=== PATIENT | female | born 1970 | race Caucasian/White ===

== ENCOUNTER 2017-09-14 16:08 | Emergency (ER) | payer OTHER ==
[2017-09-14 16:27] VITALS: BP 109/50
--- NOTE | 2017-09-14 17:02 | RAD ---
INDICATION: Left foot injury. TECHNIQUE: 3 views of the left foot were obtained. FINDINGS: There is lateral soft tissue swelling. There is an oblique slightly comminuted fracture of the distal diaphysis and metaphysis of the fifth metatarsal. The fracture fragments are impacted. No other fractures are seen. Joint spaces appear maintained. IMPRESSION: OBLIQUE, COMMINUTED IMPACTED FRACTURE OF THE FIFTH METATARSAL.
--- NOTE | 2017-09-14 17:24 | ED ---
Lower Extremity - HPI Summary HPI Summary: 47 YO F C/O LEFT LATERAL FOOT PAIN AFTER TRIP AND FALL DOWN SEVERAL STEPS JPTA. PAIN WITH ATTEMPTED WEIGHT BEARING. DENIES OTHER INJURIES. - History of Current Complaint Chief Complaint: UCLowerExtremity Stated Complaint: FOOT INJURY Time Seen by Provider: 09/14/17 17:08 Hx Last Menstrual Period: 09/09/17 - Allergies/Home Medications Allergies/Adverse Reactions: Allergies Allergy/AdvReac Type Severity Reaction Status Date / Time No Known Allergies Allergy Verified 09/14/17 16:20 Home Medications: Home Medications Levothyroxine TAB* [Synthroid 75 MCG TAB*] 1 tab PO DAILY 09/14/17 [History Confirmed 09/14/17] PMH/Surg Hx/FS Hx/Imm Hx Previously Healthy: Yes Endocrine/Hematology History: Reports: Hx Thyroid Disease - Cancer History Hx Chemotherapy: No Hx Radiation Therapy: No Infectious Disease History: No Infectious Disease History: Denies: History Other Infectious Disease, Traveled Outside the [place] in Last 30 Days - Social History Alcohol Use: Daily Substance Use Type: Reports: None Smoking Status (MU): Never Smoked Tobacco Review of Systems Constitutional: Negative Eyes: Negative ENT: Negative Cardiovascular: Negative Respiratory: Negative Gastrointestinal: Negative Positive: no symptoms reported Positive: Other - PAIN/SWELLING LATERAL LEFT FOOT Positive: Other - ECCYMOSIS LATERAL LEFT FOOT Neurological: Negative Psychological: Normal All Other Systems Reviewed And Are Negative: Yes Physical Exam Triage Information Reviewed: Yes Vital Signs On Initial Exam: Initial Vitals Temp Pulse Resp BP Pulse Ox 98.7 F 58 15 109/50 99 09/14/17 16:21 09/14/17 16:21 09/14/17 16:21 09/14/17 16:21 09/14/17 16:21 Vital Signs Reviewed: Yes Appearance: Positive: Well-Appearing, No Pain Distress Skin: Positive: Warm, Skin Color Reflects Adequate Perfusion Eyes: Positive: Normal, EOMI, BRAEDEN Neck: Positive: Supple Musculoskeletal: Positive: Other - SWELLING/ECCYMOSIS/TENDER TO PALPATION LATERAL LEFT FOOT, MID 5TH METATARSAL. NO SKIN BREAK. ANKLE NORMAL EXAM. NL CAP REFILL. Neurological: Positive: Normal Psychiatric: Positive: Normal AVPU Assessment: Alert Diagnostics - Vital Signs Vital Signs Temp Pulse Resp BP Pulse Ox 09/14/17 16:21 98.7 F 58 15 109/50 99 - Laboratory Lab Statement: Any lab studies that have been ordered have been reviewed, and results considered in the medical decision making process. Lower Extremity Course/Dx - Course Course Of Treatment: POST OP SHOE AND CRUTCHES. F/U ORTHOPEDICS. - Diagnoses Provider Diagnoses: Nondisplaced fracture of fifth left metatarsal bone Discharge - Discharge Plan Condition: Stable Disposition: HOME Patient Education Materials: Crutch Instructions (ED), Foot Fracture in Adults (ED) Referrals: [facility] [Outside] Kaleigh Chambers MD [Primary Care Provider] - Elizabeth Bueno MD [Medical Doctor] - Additional Instructions: FOLLOW UP WITH ORTHOPEDICS; CALL TOMORROW IN THE MORNING TO ARRANGE AN APPOINTMENT. GET RECHECKED FOR ANY WORSENING OF YOUR CONDITION OR QUESTIONS OR CONCERNS.
== END 2017-09-14 17:37 | disposition home or self-care (01) ==
LOC: UCEAST 16:08
DX: S92.355A Nondisplaced fracture of fifth metatarsal bone, left foot, initial encounter for closed fracture (principal); E07.9 Disorder of thyroid, unspecified; Z79.899 Other long term (current) drug therapy; W10.9XXA Fall (on) (from) unspecified stairs and steps, initial encounter; Y92.9 Unspecified place or not applicable
CPT/HCPCS: 99212; G0463

== ENCOUNTER 2018-08-16 08:19 | Emergency (ER) | payer OTHER ==
--- OUTSIDE RECORDS SUMMARY | 2018-08-16 08:24 | XMS REPORT | Continuity of Care Document ---
:1970 External Reference #:[id number] Author Name Dana Mao O.D. Address [address] [place] [address] Care Team Providers Name Role Phone Guillermina Jones M.D. Primary Care Physician Unavailable Payers Type Date Identification Numbers Payment Provider Subscriber Policy Number: [id number] [employer] Ppo/Pos/Epo/Nap Shai Gonzalez Group Number: [id number] [address] PayID: [id number] [place] [address] Advance Directives Description No Information Available Problems Date Description Provider Status Onset: Hypothyroidism Active Onset: 08/02/2018 Tear film insufficiency Dana Mao O.D. Active Onset: 12/30/2015 Presbyopia Amy Mcgarry O.D. Active Onset: 12/30/2015 Myopia Amy Mcgarry O.D. 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 ETOH Use Occasionally consumes alcohol Tobacco Use Start: Unknown Patient has never smoked Recreational Drug Use Denies Drug Use Smoking Status Reviewed: 08/02/18 Patient has never smoked Allergies, Adverse Reactions, Alerts Description No Known Drug Allergies Medications Medication Date Status Form Strength Qnty SIG Indications Ordering Provider Levothyroxine Active Tablets 75mcg 1 daily Unknown Sodium 00 Multi Vitamin Active Tablets Unknown Daily 00 Immunizations Description No Information Available Vital Signs Description No Information Available Results Description No Information Available Procedures Date Code Description Status 01/27/2017 47192 Determination Of Refractive State Completed 01/27/2017 37907 Est Patient Comprehensive Exam Completed 12/30/2015 61990 Determination Of Refractive State Completed 12/30/2015 59557 New Patient Comprehensive Exam Completed Encounters Description No Information Available Plan of Treatment 08/02/2018 - Dana Mao O.D.H04.123 Dry eye syndrome of bilateral lacrimal glandsComments:Both of your eyes appear to be dry. Use artificial tears as directed. You can use the tears more often if you are reading a book or are on the computer, as we tend to blink less, making our eyes dry out more.[facility] offers a few items in our optical department to help alleviate dry eye symptoms.H52.13 Myopia, bilateralComments:Smoking can increase the risk of developing or worsening any eye related disease, as well as affect your overall health. If you are a smoker, we strongly recommend that you quit.If you are not a smoker, we strongly recommend that you do not start. You have Myopia, or near sightedness. I have given you a prescription for glasses.Follow up:1 Year Follow Up You can expect to have your eyes dilated at your next visit. If Dr. Mao orders any additional testing, it may require extra time. We recommend that you bring sunglasses, as dilation drops often make you light sensitive until they wear off. We always recommend you bring someone to drive you home if you are uncomfortable driving with your eyes dilated. If you have any questions before your next visit, feel free to call our office at .H52.4 PresbyopiaComments:You have presbyopia. This is when the lens in your eye loses the ability to change focus, and happens as we age. A pair of reading glasses will help you see up close.
--- OUTSIDE RECORDS SUMMARY | 2018-08-16 08:24 | XMS REPORT | Continuity of Care Document ---
:1970 External Reference #:[id number] Author Name Kat Seth Care Team Providers Name Role Phone Kaleigh Chambers MD Primary Care Physician Unavailable Payers Type Date Identification Numbers Payment Provider Subscriber Policy Number: [id number] [employer] Shai Gonzalez Group Number: [id number] [address] PayID: [id number] [place] [address] Advance Directives Description No Information Available Problems Date Description Provider Status Onset: 08/01/2015 Hypothyroidism Guillermina Jones M.D. Active Onset: 08/01/2015 Rosacea Guillermina Jones M.D. 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 Tobacco Use Start: Unknown Never Smoked Cigarettes Smoking Status Reviewed: Never Smoked 08/07/18 Cigarettes ETOH Use Consumes 1 glass of wine per day ETOH Use Consumes 7 glasses of wine per week Tobacco Use Start: Unknown Patient has never smoked Recreational Drug Use Denies Drug Use Exercise Type/Frequency Exercises regularly treadmill 6 miles per wk now these days Exercise Type/Frequency aerobic 3 times a week Allergies, Adverse Reactions, Alerts Description No Known Drug Allergies Medications Medication Date Status Form Strength Qnty SIG Indications Ordering Provider Knee Scooter 09/15/ Active 1units Knee Lyle 2016 scooter to F use as Cristian, needed for MD left lower extremity Vitamin D 08/03/ Active Capsules 1 per day Guillermina (Cholecalcifero 2016 mandy Jones) M.D. Metronidazole 07/29/ Active Gel 0.75% 45gm apply Kaleigh 2015 daily to Chambers, area daily M.D. Levothyroxine 07/29/ Active Tablets 75mcg 90tabs Take 1 Kaleigh Sodium 2015 Tablet By Chambers, Mouth M.D. Every Day Multi Vitamin / Active Tablets 1 daily Unknown Daily 0000 Vitamin B12 TR / Active Tablets ER 1 by mouth Unknown 0000 every day Vitamin D3 08/01/ Hx Capsules 36357Avlm 8caps Guillermina 2014 - Robert, 08/03/ M.D. 2016 Levothyroxine 07/29/ Hx Tablets 75mcg 90tabs Take 1 Kaleigh Sodium 2014 - Tablet By Trish, 08/07/ Mouth M.D. 2018 Every Day Vitamin D High / Hx Capsules 1000Unit not sure Unknown Potency 0000 - dose, 1 by 08/03/ mouth 2016 every day Immunizations CPT Code Status Date Vaccine Reaction Lot # [id number] Given 05/29/2018 Influenza Virus Vaccine, Quadrivalent, Split, Preservative Free 50276 Given 08/03/2017 Influenza Virus Vaccine, given IM in L [id number] Quadrivalent, Split, deltoid,efe.well,site Preservative Free unremarkable,bandaid applied 88653 Given 07/29/2015 Tdap - [id number] Tetanus/Diptheria/Acellular Pertussis 63017 Given 07/29/2015 Influenza Virus Vaccine, [id number] Quadrivalent, Split, Preservative Free [id number] Refused 06/29/2016 Influenza Virus Vaccine, Quadrivalent, Split, Preservative Free Vital Signs Date Vital Result Comment 08/07/2018 8:58am Height 68 inches 5'8" Weight 151.00 lb Heart Rate 59 /min BP Systolic Sitting 110 mmHg BP Diastolic Sitting 68 mmHg O2 % BldC Oximetry 98 % BMI (Body Mass Index) 23.0 kg/m2 01/05/2018 2:11pm Height 68 inches 5'8" Weight 145.00 lb Heart Rate 66 /min Respiratory Rate 15 /min Pain Level 0 BMI (Body Mass Index) 22.0 kg/m2 11/10/2017 8:59am Height 68 inches 5'8" Weight 151.00 lb per pt Heart Rate 58 /min reg Respiratory Rate 16 /min Pain Level 0 BMI (Body Mass Index) 23.0 kg/m2 10/11/2017 10:56am Height 68 inches 5'8" Weight 151.00 lb Heart Rate 118 /min Respiratory Rate 18 /min Body Temperature 99.0 F Pain Level 3 BMI (Body Mass Index) 23.0 kg/m2 09/15/2017 11:35am Height 68 inches 5'8" Heart Rate 57 /min BP Systolic 118 mmHg BP Diastolic 70 mmHg Respiratory Rate 18 /min Body Temperature 96.9 F Pain Level 5 08/03/2017 10:15am Height 68 inches 5'8" Weight 151.00 lb Heart Rate 85 /min BP Systolic Sitting 102 mmHg BP Diastolic Sitting 64 mmHg Body Temperature 96.4 F O2 % BldC Oximetry 97 % BMI (Body Mass Index) 23.0 kg/m2 10/20/2016 8:19am Height 68 inches 5'8" Weight 147.50 lb with boots Heart Rate 66 /min BP Systolic Sitting 118 mmHg Lue reg cuff BP Diastolic Sitting 62 mmHg Lue reg cuff BP Systolic Standing 110 mmHg Lue reg cuff BP Diastolic Standing 60 mmHg Lue reg cuff Respiratory Rate 6 /min BMI (Body Mass Index) 22.4 kg/m2 Ejection Fraction 55-60% echo 09/14/16 09/08/2016 12:59pm Height 68 inches 5'8" Weight 144.50 lb no shoes Heart Rate 56 /min BP Systolic 114 mmHg Rue reg cuff BP Diastolic 60 mmHg Rue reg cuff BP Systolic Sitting 112 mmHg Lue reg cuff BP Diastolic Sitting 62 mmHg Lue reg cuff BP Systolic Standing 108 mmHg Lue reg cuff BP Diastolic Standing 60 mmHg Lue reg cuff Respiratory Rate 14 /min BMI (Body Mass Index) 22.0 kg/m2 08/02/2016 1:09pm Height 68 inches 5'8" Weight 145.00 lb Heart Rate 54 /min BP Systolic Sitting 100 mmHg BP Diastolic Sitting 64 mmHg Body Temperature 98.4 F BMI (Body Mass Index) 22.0 kg/m2 07/29/2015 9:57am Height 68 inches 5'8" Weight 144.00 lb Heart Rate 65 /min BP Systolic Sitting 108 mmHg BP Diastolic Sitting 74 mmHg Body Temperature 98.3 F O2 % BldC Oximetry 98 % BMI (Body Mass Index) 21.9 kg/m2 Results Test Date Facility Test Result H/L Range Note Laboratory test 10/27/2017 [facility] Cytology SEE RESULT [address] [place] [address] [phone] Lipid Profile 07/27/2017 [facility] Triglycerides 91 mg/dL N 2 (Trig/Chol/HDL) [address] [place] [address] [phone] Cholesterol 159 mg/dL N 3 HDL Cholesterol 59.1 mg/dL N 4 LDL Cholesterol 82 mg/dL N 5 Laboratory test 07/27/2017 [facility] TSH (Thyroid 2.43 mcIU/mL N 0.34-5.[address] [place] [address] [phone] Glucose 86 mg/dL N 70-100 7 Laboratory test 07/27/2016 [facility] Glucose 82 mg/dL N 70- [address] [place] [address] [phone] Lipid Profile 07/27/2016 [facility] Triglycerides 57 mg/dL N 9 (Trig/Chol/HDL) [address] [place] [address] [phone] Cholesterol 144 mg/dL N 10 HDL Cholesterol 60.8 mg/dL N 11 LDL Cholesterol 72 mg/dL N 12 Laboratory test 07/27/2016 [facility] TSH (Thyroid 3.43 mcIU/mL N 0.34-5.[address] [place] [address] [phone] Free T4 (Free Thyroxine) 1.10 ng/dL N 0.61-1.12 14 Laboratory test 09/30/2015 [facility] Vitamin D 66.2 ng/mL High 30-[address]) [place] [address] [phone] Laboratory test 07/29/2015 [facility] TSH (Thyroid 3.15 N 0.34 -5.[address]) ?IU/[place] [address] [phone] Free T4 (Free Thyroxine) 1.00 ng/mL N 0.61-1.12 Vitamin D Total 25(Oh) 19.0 ng/mL Low 30-50 Laboratory test 07/21/2015 [facility] Glucose 83 mg/dL N 70- 100 15 finding [address] [place] [address] [phone] Lipid Profile 07/21/2015 [facility] Triglycerides 106 mg/dL N 16 (Trig/Chol/HDL) [address] [place] [address] [phone] Cholesterol 164 mg/dL N 17 HDL Cholesterol 55.3 mg/dL N 18 LDL Cholesterol 88 mg/dL N 19 1 SEE RESULT BELOW Name: TADYUDITH : [address]: Elizabeth Miller MD Acct: [id number] Unit: [id number] AGE: 47 Location: [facility] Re10/27/17 SEX: F Status: REG REF SPEC: [id number] BINH: 10/27/17-[address] [facility] [address]: Elizabeth Miller MD REQ: [id number] RECD: 10/27/17160 STATUS: GALLO DYSON DR: Kaleigh Chambers MD _ ORDERED: TP IMAGE ANAL, HPV/Thin Prep COMMENTS: [id number] Negative for Intraepithelial lesion or Malignancy A. Ectocervical/Endocervical Specimen Adequacy: Satisfactory of evaluation Transformation zone component identified Patient Information: HPV: High risk HPV RNA testing regardless of pap results. Actual Specimen Date: 10/27/17 Last Menstrual Date: 10/11/17 Date of Last Specimen: 09/07/16 Date Time Test Result Flag (u) Normal Range 10/27/17 1006 @ HPV RNA Negative Negative @ @ The high-risk HPV types detected by the assay include: 16, @ 18, 31, 33, 35, 39, 45, 51, 52, 56, 58, 59, 66, and 68. Signed (signature on file) ABEBA Nicole (ASCP) 10/28 3377 This Pap test was evaluated with the assistance of the ThinPrep Test Imaging System. Due to cytologic findings at the measurement technician microscope, comprehensive manual rescreening by a Fish Header may be required. The Pap Smear is a screening test designed to aid in the detection of premalignant and malignant conditions of the uterine cervix. It is not a diagnostic procedure and should not be used as the sole means of detecting cervical cancer. Both false- positive and false- negative reports do occur. Depending on your risk status, a Pap smear should be obtained and evaluated every 1-3 years. END OF REPORT * ML=Testing performed at Main Lab DEPARTMENT OF PATHOLOGY, [address] [place] [address] Betito Melo M.D. Director [facility] # [id number] 2 Desirable: <150 Borderline High: 150-199 High: 200-499 Very High: >500 3 Desirable: <200 Borderline High: 200-239 High: >239 4 Low: <40 Desirable: 40-60 High: >60 5 Desirable: <100 Near Optimal: 100-129 Borderline High: 130-159 High: 160-189 Very High: >189 6 FASTING 12 HOUR 7 FASTING 12 HOUR 8 FASTING 12 HOUR 9 Desirable <150 Borderline high 150-199 High 200-499 Very High >500 10 Desirable <200 Borderline high 200-239 High >239 11 Low <40 Desirable: 40-60 High: >60 12 Desirable: <100 mg/dL Near Optimal: 100-129 mg/dL Borderline High: 130-159 mg/dL High: 160-189 mg/dL Very High: >189 mg/dL 13 FASTING 12 HOUR 14 FASTING 12 HOUR 15 FASTING 10 HOUR 16 Desirable <150 Borderline high 150-199 High 200-499 Very High >500 17 Desirable <200 Borderline high 200-239 High >239 18 Low <40 Desirable: 40-60 High: >60 19 Desirable: <100 mg/dL Near Optimal: 100-129 mg/dL Borderline High: 130-159 mg/dL High: 160-189 mg/dL Very High: >189 mg/dL Procedures Date Code Description Status 11/02/2017 [id number] Mammogram Completed 09/15/2017 66275 Closed TX Metacarpal FX Single W/O Manipulation, Ea Completed Bone 08/03/2017 39752 Admin & Interp Of Health Risk Assessment w/ Patient Completed 10/07/2016 [id number] Mammogram Completed 10/02/2016 09116 Mobile Cardiovascular Telemetry Over 24 HR Up To 30 Completed Days 09/29/2016 54560 ECHO Stress Test Incl Perf Contiuous ekg Monitoring Completed W/Phys Superv 09/14/2016 29983 ECHO Transthoracic, Real-Time 2D With Doppler And Completed Color Flow 09/08/2016 60360 EKG Tracing & Interpretation Completed 08/02/2016 46009 EKG Tracing & Interpretation Completed 08/12/2015 [id number] Mammogram Completed 11/17/2014 [id number] Diabetic Retinal Eye Exam Completed 11/17/2014 [id number] Mammogram Completed 05/21/2014 [id number] Mammogram Completed 09/19/2010 [id number] Colonoscopy Completed Encounters Type Date Location Provider Dx Diagnosis Office Visit 01/05/2018 [facility] S92.355D Nondisp fx of 5th 2:00p [facility] Foster MD metatarsal bone, l ft, 7thD Office Visit 08/03/2017 [facility] Kaleigh Chambers, Z00.00 Encntr for 10:30a Jefry Ravi M.D. general adult [place] medical exam w/o abnormal findings Z23 Encounter for immunization Office Visit 10/20/2016 8:45a [facility] R00.2 Palpitations Yamila Solitario M.D., FACC, FASNC Z82.49 Family hx of ischem heart dis and oth dis of the circ sys Office Visit 09/08/2016 1:30p [facility] R00.2 Palpitations Yamila Solitario M.D., FACC, FASNC Z82.49 Family hx of ischem heart dis and oth dis of the circ sys R06.00 Dyspnea, unspecified Office Visit 08/02/2016 1:00p [facility] Kaleigh Z00.01 Encounter for Jefry Chambers M.D. general adult [place] medical exam w abnormal findings R00.2 Palpitations E03.9 Hypothyroidism, unspecified Office Visit 07/29/2015 10:00a [facility] Guillermina Jones Z00.01 Encounter for Jefry Ravi M.D. general adult [place] medical exam w abnormal findings Z12.31 Encntr screen mammogram for malignant neoplasm of breast E03.9 Hypothyroidism, unspecified L71.9 Rosacea, unspecified N39.41 Urge incontinence Z23 Encounter for immunization Plan of Treatment Future Appointment(s):08/09/2019 9:10 am - Kaleigh Chambers M.D. at [facility] Medicine - Tqrmsxgpc02/19/2018 - Kaleigh Chambers M.D.Z00.00 Encounter for general adult medical examination without abnoComments:Reviewed online questionnaire which reveals no diabetes, cholesterol profile is good, BMI is normal , I am glad you have an active lifestyle and no issues with anxiety/ depression and stress is well handled !VACCINES:Flu shot every year in the fall. Your last tetanus/whooping cough bosste rwas in 2014 and it is good for 10 years (F)Mammogram: every 1-2 years between age 50 -75(F)Pelvic Exam/Pap smear:every 3-5 years up to age 65 if low risk Screening for glaucoma: every 1- 2 years unless otherwise instructed by your eye doctor Cardiovascular Disease: Cholesterol Screening test every 5 yearsEXERCISE:Leg exercise like walking is essential to maintaining independence!We would like to have a copy on file when you get your Health Care Proxy and Advance Directives completed.
[2018-08-16 08:30] VITALS: BP 121/43
--- NOTE | 2018-08-16 09:00 | UC ---
Skin Complaint HPI - HPI Summary HPI Summary: SUSTAINED A CUT UNDER RIGHT INDEX FINGER NAIL WHILE REACHING INTO HER PURSE 2 DAYS AGO. SINCE THEN IT HAS BECOME SWOLLEN, RED AND TENDER. - History of Current Complaint Chief Complaint: UCUpperExtremity Time Seen by Provider: 08/16/18 08:36 Stated Complaint: FINGER INJURY Hx Obtained From: Patient Hx Last Menstrual Period: 2 weeks Onset/Duration: Gradual Onset, Lasting Days, Still Present Timing: Constant Onset Severity: Mild Current Severity: Moderate Pain Intensity: 5 Pain Scale Used: 0-10 Numeric Location: Hand (Right) - INDEX FINGER Character: Swelling, Pain, Redness Aggravating Factor(s): Touch Alleviating Factor(s): Nothing Associated Signs & Symptoms: Positive: Tenderness - Allergy/Home Medications Allergies/Adverse Reactions: Allergies Allergy/AdvReac Type Severity Reaction Status Date / Time No Known Allergies Allergy Verified 09/14/17 16:20 Review of Systems All Other Systems Reviewed And Are Negative: Yes Constitutional: Positive: Negative Skin: Positive: Other - ERYTHEMA RIGHT DISTAL INDEX FINGER Respiratory: Positive: Negative Cardiovascular: Positive: Negative Gastrointestinal: Positive: Negative Musculoskeletal: Positive: Edema PMH/Surg Hx/FS Hx/Imm Hx Endocrine History: Hypothyroidism - Surgical History Surgical History: None - Family History Known Family History: Positive: Non-Contributory - Social History Alcohol Use: Daily Substance Use Type: None Smoking Status (MU): Never Smoked Tobacco Physical Exam Triage Information Reviewed: Yes Appearance: Well-Appearing, No Pain Distress, Well-Nourished Vital Signs: Initial Vital Signs Temp 98.3 F 08/16/18 08:25 Pulse 78 08/16/18 08:25 Resp 16 08/16/18 08:25 BP 121/43 08/16/18 08:25 Pulse Ox 99 08/16/18 08:25 Vital Signs Reviewed: Yes Eyes: Positive: Conjunctiva Clear ENT: Positive: Hearing grossly normal Neck: Positive: Supple Respiratory: Positive: No respiratory distress, No accessory muscle use Cardiovascular: Positive: Pulses Normal Abdomen Description: Positive: Soft Musculoskeletal: Positive: ROM Intact, Edema @ - RIGHT DISTAL INDEX FINGER Neurological: Positive: Alert Psychological: Positive: Age Appropriate Behavior Skin: Positive: Other - ERYTHEMA RIGHT DISTAL INDEX FINGER Course/Dx - Diagnoses Provider Diagnosis: Cellulitis of right index finger Discharge - Sign-Out/Discharge Documenting (check all that apply): Patient Departure All imaging exams completed and their final reports reviewed: No Studies - Discharge Plan Condition: Stable Disposition: HOME Prescriptions: Cephalexin CAP* [Keflex 500 CAP*] 1,000 mg PO BID #28 cap Patient Education Materials: Cellulitis (ED) Referrals: Kaleigh Chambers MD [Primary Care Provider] - If Needed Additional Instructions: TAKE THE ANTIBIOTIC TWICE DAILY FOR THE FULL COURSE. IBUPROFEN NEEDED FOR DISCOMFORT. YOU HAD A TETANUS BOOSTER 07/29/15. SEEK FOLLOW-UP IF YOU DEVELOP SPREADING REDNESS OF THE SKIN, PURULENT DRAINAGE, FEVER, INCREASED PAIN OR ANY OTHER CONCERNING SYMPTOMS. - Billing Disposition and Condition Condition: STABLE Disposition: Home
== END 2018-08-16 09:00 | disposition home or self-care (01) ==
LOC: UCEAST 08:19
DX: L03.011 Cellulitis of right finger (principal)
CPT/HCPCS: 99212; G0463

== ENCOUNTER 2018-11-03 08:59 | Emergency (ER) | payer OTHER ==
[2018-11-03 09:37] VITALS: BP 103/57
--- NOTE | 2018-11-03 10:52 | UC ---
Throat Pain/Nasal Keny HPI - HPI Summary HPI Summary: 48 y/o female presents to the urgent care c/o sore throat cild has flu and strept - History of Current Complaint Chief Complaint: UCGeneralIllness Stated Complaint: POSS STREP/FLU Time Seen by Provider: 11/03/18 10:26 Hx Obtained From: Patient Hx Last Menstrual Period: 10/20/18 Pain Intensity: 7 - Allergies/Home Medications Allergies/Adverse Reactions: Allergies Allergy/AdvReac Type Severity Reaction Status Date / Time No Known Allergies Allergy Verified 11/03/18 09:37 PMH/Surg Hx/FS Hx/Imm Hx - Surgical History Surgical History: None - Family History Known Family History: Positive: Non-Contributory - Social History Alcohol Use: Daily Substance Use Type: None Smoking Status (MU): Never Smoked Tobacco Physical Exam - Summary Physical Exam Summary: VITAL SIGNS: Reviewed. GENERAL: Patient is a well developed and nourished who is sitting comfortable in the examining table. Patient is not in any acute respiratory distress. HEAD AND FACE: No signs of trauma. No ecchymosis, hematomas or skull depressions. No sinus tenderness. EYES: PERRLA, EOMI x 2, No injected conjunctiva, no nystagmus. No photophobia. EARS: Hearing grossly intact. Ear canals and tympanic membranes are within normal limits. Nose: edematous and erythematous nasal mucosa w/ clear nasal discharge. MOUTH: Positive no erythema, no tonsillar enlargement. Uvula in midline. NECK: Supple, trachea is midline, Positive anterior cervical lymphadenopathy, no JVD, no carotid bruit, no c-spine tenderness, neck with full ROM. No meningeal signs, no Kernig's or brudzinskis signs. CHEST: Symmetric, no tenderness at palpation LUNGS: Clear to auscultation bilaterally. No wheezing or crackles. CVS: Regular rate and rhythm, S1 and S2 present, no murmurs or gallops appreciated. ABDOMEN: Soft, non-tender. No signs of distention. No rebound no guarding, and no masses palpated. Bowel sounds are normal. EXTREMITIES: FROM in all major joints, no edema, no cyanosis or clubbing. NEURO: Alert and oriented x 3. No acute neurological deficits. Speech is normal and follows commands. SKIN: Dry and warm Triage Information Reviewed: Yes Vital Signs: Initial Vital Signs Temp 98 F 11/03/18 09:35 Pulse 68 11/03/18 09:35 Resp 17 11/03/18 09:35 BP 103/57 11/03/18 09:35 Pulse Ox 100 11/03/18 09:35 Throat Pain/Nasal Course/Dx - Differential Dx/Diagnosis Differential Diagnosis/HQI/PQRI: Influenza, Laryngitis, Pharyngitis, Tonsillitis , URI Provider Diagnosis: Influenza A Discharge - Sign-Out/Discharge Documenting (check all that apply): Patient Departure - d/c home All imaging exams completed and their final reports reviewed: No Studies - Discharge Plan Condition: Stable Disposition: HOME Prescriptions: Oseltamivir CAP* [Tamiflu CAP*] 75 mg PO BID #10 cap Patient Education Materials: Influenza (ED) Referrals: Kaleigh Chambers MD [Primary Care Provider] - 3 Days Additional Instructions: 1- Please take the full course of the antiviral to avoid resistance. Encourage hand washing and wear a mask to avoid spreading. 2-Please continue taking Tylenol PO q6-8hrs prn as instructed after meals to alleviate fever, and sore throat. Increase fluid intake, eat well, rest and avoid strenuous exercise 3-If symptoms do not improve or worsen please return to the urgent care or f/u with your PCP in 3 days for further evaluation and treatment. - Billing Disposition and Condition Condition: STABLE Disposition: Home
[2018-11-03 11:12] LABS: Influenza A Molecular POSITIVE (Negative)
== END 2018-11-03 11:21 | disposition home or self-care (01) ==
LOC: UCEAST 08:59
DX: J10.1 Influenza due to other identified influenza virus with other respiratory manifestations (principal)
CPT/HCPCS: 87651; 99212; G0463